=== PATIENT | male | born 1960 | race Caucasian/White ===

== ENCOUNTER 2017-12-19 08:35 | Outpatient (CLI) | payer OTHER ==
[2017-12-19] MEDS ORDERED: ISOVUE-370 76%-LOCM 1 ML ONE (12:48)
== END 2017-12-19 08:36 | disposition home or self-care (01) ==
LOC: BICCT 08:35
PROVIDERS: ATTEND Urology
DX: N20.0 Calculus of kidney (principal); R31.29 Other microscopic hematuria; N28.1 Cyst of kidney, acquired; K57.30 Diverticulosis of large intestine without perforation or abscess without bleeding
CPT/HCPCS: 74178

== ENCOUNTER 2017-12-31 11:52 | Outpatient (CLI) | payer OTHER | END 2017-12-31 11:53 | disposition home or self-care (01) | LOC: BICULT 11:52 | PROVIDERS: ATTEND Urology | DX: N20.0 Calculus of kidney (principal); N28.1 Cyst of kidney, acquired | CPT/HCPCS: 74018; 76770 ==

== ENCOUNTER 2018-01-02 07:31 | Outpatient (CLI) | payer OTHER | END 2018-01-02 07:32 | disposition home or self-care (01) | LOC: BICCT 07:31 | PROVIDERS: ATTEND Urology | DX: N20.0 Calculus of kidney (principal); R31.29 Other microscopic hematuria | CPT/HCPCS: 74178 ==

== ENCOUNTER 2018-01-29 09:17 | Outpatient (CLI) | payer OTHER | END 2018-01-29 09:18 | disposition home or self-care (01) | LOC: BICRAD 09:17 | PROVIDERS: ATTEND Internal Medicine Gastroenterology | DX: M25.551 Pain in right hip (principal); M16.11 Unilateral primary osteoarthritis, right hip ==

== ENCOUNTER 2020-09-28 13:12 | Outpatient (CLI) | payer BC | END 2020-09-28 13:13 | disposition home or self-care (01) | LOC: BICULT 13:12 | PROVIDERS: ATTEND Internal Medicine Cardiovascular Disease | DX: E04.1 Nontoxic single thyroid nodule (principal); R51.9 Headache, unspecified; I10 Essential (primary) hypertension | CPT/HCPCS: 70450; 76536; 76770; 93975 ==

== ENCOUNTER 2021-02-26 05:38 | Inpatient (IN) | payer BC ==
[2021-02-26] MEDS ORDERED: hydrALAZINE 20 MG/ML VIAL SLOW IVP PRN (08:15)
[2021-02-26] MEDS: Aspirin 325 mg Enteric Coated Tablet PO SCH (10:11)
[2021-02-26] MEDS: Heparin 5,000 UNITS/ML VIAL SC SCH ×2 (10:57→20:05)
[2021-02-26 12:16] VITALS: BMI 34.3
[2021-02-26] MEDS ORDERED: FlunisoLIDE 0.025% Nasal Spray 25 ml Bottle EA NARE SCH (13:30)
[2021-02-26] MEDS ORDERED: NPH, Human Insulin Isophane 300 UNIT/3 ML VIAL SQ SCH (13:30)
[2021-02-26] MEDS ORDERED: FLU VACC QS2021-22(6MOS UP)/PF 60 MCG/0.5 ML SYRINGE IM ONE (16:00)
[2021-02-26] MEDS: Nicotine 21 MG PATCH TD SCH (20:05)
[2021-02-26] MEDS: NPH, Human Insulin Isophane 300 UNIT/3 ML VIAL SQ SCH (20:06)
[2021-02-26] MEDS: FlunisoLIDE 0.025% Nasal Spray 25 ml Bottle EA NARE SCH (20:06)
[2021-02-26] MEDS: Atorvastatin Calcium 40 MG TAB PO SCH (20:07)
[2021-02-26 20:19] LABS: SARS-CoV-2 PCR NAA for Saliva Not Detected (NotDetected)
[2021-02-27 04:45] LABS: Cardiac Risk 6.2 (Less than 4.5)
[2021-02-27] MEDS ORDERED: Nicotine 21 MG PATCH TD SCH (09:00)
[2021-02-27] MEDS: Aspirin 325 mg Enteric Coated Tablet PO SCH (10:39)
[2021-02-27] MEDS: FlunisoLIDE 0.025% Nasal Spray 25 ml Bottle EA NARE SCH ×2 (10:40→19:48)
[2021-02-27] MEDS: NPH, Human Insulin Isophane 300 UNIT/3 ML VIAL SQ SCH ×2 (10:40→19:48)
[2021-02-27] MEDS: Heparin 5,000 UNITS/ML VIAL SC SCH ×2 (10:40→19:49)
[2021-02-27 11:14] LABS: Hemoglobin A1c 7.7 % (4.0-6.0)
[2021-02-27] MEDS: Insulin Regular 300 UNITS/3 ML VIAL SC PRN (17:14)
[2021-02-27] MEDS: Atorvastatin Calcium 40 MG TAB PO SCH (19:49)
[2021-02-27] MEDS: Nicotine 21 MG PATCH TD SCH (19:49)
[2021-02-28] MEDS: Insulin Regular 300 UNITS/3 ML VIAL SC PRN ×2 (05:39→12:26)
[2021-02-28] MEDS: Aspirin 81 mg Enteric Coated Tablet PO SCH (09:06)
[2021-02-28] MEDS: FlunisoLIDE 0.025% Nasal Spray 25 ml Bottle EA NARE SCH ×2 (09:06→22:21)
[2021-02-28] MEDS: Heparin 5,000 UNITS/ML VIAL SC SCH ×2 (09:07→20:57)
[2021-02-28] MEDS: NPH, Human Insulin Isophane 300 UNIT/3 ML VIAL SQ SCH ×2 (09:07→20:57)
[2021-02-28] MEDS: hydrALAZINE 25 MG TAB PO SCH ×2 (13:52→20:58)
[2021-02-28] MEDS: metFORMIN 500 MG TAB PO SCH (18:02)
[2021-02-28] MEDS: Atorvastatin Calcium 40 MG TAB PO SCH (20:57)
[2021-02-28] MEDS: Nicotine 21 MG PATCH TD SCH (20:58)
[2021-02-28] MEDS: Carvedilol 25 MG TAB PO SCH (20:58)
[2021-03-01] MEDS: Insulin Regular 300 UNITS/3 ML VIAL SC PRN ×2 (06:27→11:16)
[2021-03-01] MEDS: Carvedilol 25 MG TAB PO SCH (08:46)
[2021-03-01] MEDS: Aspirin 81 mg Enteric Coated Tablet PO SCH (08:47)
[2021-03-01] MEDS: metFORMIN 500 MG TAB PO SCH ×2 (08:47→17:28)
[2021-03-01] MEDS: hydrALAZINE 25 MG TAB PO SCH (08:47)
[2021-03-01] MEDS: FlunisoLIDE 0.025% Nasal Spray 25 ml Bottle EA NARE SCH (08:48)
[2021-03-01] MEDS: Heparin 5,000 UNITS/ML VIAL SC SCH (08:48)
[2021-03-01] MEDS: NPH, Human Insulin Isophane 300 UNIT/3 ML VIAL SQ SCH (08:49)
[2021-03-01] MEDS ORDERED: Hydrochlorothiazide 25 MG TAB PO SCH (09:00)
[2021-03-01] MEDS ORDERED: Valsartan 80 MG TAB PO SCH (09:00)
[2021-03-01] MEDS ORDERED: NIFEdipine XL 90 MG TAB PO SCH (09:45)
[2021-03-01 15:49] VITALS: BP 139/77; TEMP 97.7
[2021-03-02] MEDS ORDERED: NIFEdipine XL 90 MG TAB PO SCH (09:00)
== END 2021-03-01 18:28 | DRG 65 ==
LOC: ERS 05:38 → 3SE 07:01
PROVIDERS: ADMIT Family Medicine; ATTEND Internal Medicine
DX: I63.81 Other cerebral infarction due to occlusion or stenosis of small artery (principal); G81.91 Hemiplegia, unspecified affecting right dominant side; Z20.822 Contact with and (suspected) exposure to COVID-19; R29.710 NIHSS score 10; I10 Essential (primary) hypertension; E11.9 Type 2 diabetes mellitus without complications; E78.5 Hyperlipidemia, unspecified; F17.210 Nicotine dependence, cigarettes, uncomplicated; G43.909 Migraine, unspecified, not intractable, without status migrainosus; I08.1 Rheumatic disorders of both mitral and tricuspid valves; E78.00 Pure hypercholesterolemia, unspecified; Z88.8 Allergy status to other drugs, medicaments and biological substances; Z98.890 Other specified postprocedural states; Z79.899 Other long term (current) drug therapy; Z79.4 Long term (current) use of insulin; Z79.84 Long term (current) use of oral hypoglycemic drugs
CPT/HCPCS: 36415; 36416; 70551; 71045; 80061; 83036; 93005; 93306; J1644; J1815; U0003; U0005

== ENCOUNTER 2021-08-08 08:01 | Outpatient (CLI) | payer BC | END 2021-08-08 08:02 | disposition home or self-care (01) | PROVIDERS: ATTEND Physician Assistant | DX: I63.9 Cerebral infarction, unspecified (principal); R53.1 Weakness ==